=== PATIENT | male | born 1960 | race Caucasian/White ===

== ENCOUNTER → 2017-03-08 | Outpatient (CLI) | payer SELFPAY | LOC: LAB.O 16:35 | PROVIDERS: ATTEND Family Medicine | DX: K61.1 Rectal abscess (principal) ==

== ENCOUNTER → 2018-09-27 | Outpatient (CLI) | payer OTHER | LOC: LAB.O 08:28 | PROVIDERS: ATTEND Family Medicine | DX: Z00.00 Encounter for general adult medical examination without abnormal findings (principal); Z13.220 Encounter for screening for lipoid disorders; I10 Essential (primary) hypertension ==

== ENCOUNTER → 2019-01-12 | Outpatient (CLI) | payer OTHER | LOC: LAB.O 13:38 | PROVIDERS: ATTEND Family Medicine | DX: E78.5 Hyperlipidemia, unspecified (principal) ==

== ENCOUNTER → 2019-04-27 | Outpatient (CLI) | payer OTHER | LOC: LAB.O 13:48 | PROVIDERS: ATTEND Family Medicine | DX: E78.5 Hyperlipidemia, unspecified (principal) ==

== ENCOUNTER → 2020-02-13 | Outpatient (CLI) | payer SELFPAY | LOC: LAB.O 14:17 | PROVIDERS: ATTEND Surgery | DX: K61.1 Rectal abscess (principal) ==